=== PATIENT | female | born 1970 | race Caucasian/White ===

== ENCOUNTER → 2019-02-15 | Outpatient (CLI) | payer BC ==
--- NOTE | 2019-02-15 09:03 | Diagnostic Imaging Report ---
PROCEDURE: CT sinuses without contrast TECHNIQUE: Multiple contiguous axial images were obtained through the sinuses without the use of intravenous contrast. Coronal and sagittal reformations were then performed. Auto Exposure Controls were utilized during the CT exam to meet ALARA standards for radiation dose reduction. INDICATION: Chronic sinusitis. COMPARISON: None. FINDINGS: Small 0.6 cm mucous retention cyst in the floor of the left maxillary sinus. Paranasal sinuses are otherwise clear. The ostiomeatal units and frontal recesses are patent. No large kaushik bullosa. Advanced rightward bowing of the nasal septum. Normal alignment of the temporomandibular joints. The visualized mastoids and middle ears are clear. Skull base is intact. The orbits and visualized intracranial contents are unremarkable. IMPRESSION: 1. Subcentimeter mucous retention cyst in the floor of the left maxillary sinus. Paranasal sinuses are otherwise clear. 2. Advanced rightward bowing of the nasal septum. Dictated by: Dictated on workstation # [id number]
== END ==
LOC: EDBD 02-13 13:15 → RAD 07:29
PROVIDERS: ATTEND Family Medicine
DX: J34.1 Cyst and mucocele of nose and nasal sinus (principal); J32.0 Chronic maxillary sinusitis
CPT/HCPCS: 70486